=== PATIENT | male | born 1950 | race African-American/Black ===

== ENCOUNTER 2022-06-06 09:34 | Inpatient (IN) | payer MEDICARE, OTHER ==
[~2022-06-06] VITALS: Ht 188 cm; Wt 99.8 kg
[2022-06-06] VITALS (55 sets, daily range): BP systolic 55–107; BP diastolic 28–69
[2022-06-06] MEDS ORDERED: ETOMIDATE 2MG/ML 10ML VIAL IV ONE ×2 (09:45→10:02)
[2022-06-06] MEDS ORDERED: SUCCINYLCHOLINE CHLORIDE 200MG/10ML IV ONE ×2 (09:45→10:02)
[2022-06-06] MEDS ORDERED: PROPOFOL 10MG/ML 100ML 100 ML IV ONE (09:45)
[2022-06-06 09:54] LABS: BASOPHILS % 0.3 % (0.0-2.0); EOSINOPHILS % 2.5 % (0.0-5.0); HEMATOCRIT. 26.8 % (42.0-52.0); HEMOGLOBIN. 8.6 g/dL (14.0-18.0); LYMPHOCYTES % 45.2 % (20.0-50.0); MEAN CORPUSCULAR HEMOGLOBIN 35.5 pg (28.0-32.0); MEAN CORPUSCULAR VOLUME 110.4 fL (80.0-94.0); MEAN PLATELET VOLUME 8.6 fl (7.4-10.4); MONOCYTES % 5.9 % (2.0-8.0); NEUTROPHILS % 46.1 % (40.0-76.0); PLATELET 90 x1000/uL (130-400); RED BLOOD CELL COUNT 2.43 mill/uL (4.7-6.1); RED CELL DISTRIBUTION WIDTH 16.1 % (11.6-14.6)
[2022-06-06] MEDS ORDERED: NOREPINEPHRINE 8MG/250ML PMX 250 ML IV STA (10:09)
[2022-06-06 10:53] LABS: BG BASE EXCESS -15.2 mmol/L (-2.0-2.0); BG CARBOXYHEMOGLOBIN 0.2 % (0.5-1.5); BG DEOXYHEMOGLOBIN 0.6 % (0.0-5.0); BG HCO3 ACT 13.4 mmol/L (22.0-26.0); BG METHEMOGLOBIN 0.3 % (0.0-1.5); BG OXYGEN SATURATION 99.4 % (92.0-98.5); BG OXYHEMOGLOBIN 98.9 % (94.0-97.0); BG PCO2 42.8 mmHg (35.0-45.0); BG PH 7.114 (7.350-7.450); BG PO2 389.9 mmHg (75.0-100.0); BG SAMPLE SITE RIGHT RADIAL; BG TOTAL HEMOGLOBIN 10.3 g/dL (12.0-18.0); BG VENT MODE VENT - AC
[2022-06-06 11:38] LABS: PLATELET ESTIMATE SLIGHTLY DECREASED
[2022-06-06] MEDS ORDERED: MIDAZOLAM HCL 100 MG in DEXT 5% WATER 80 ML IV ONE (11:45)
[2022-06-06] MEDS ORDERED: FENTANYL CITRATE/PF 50MCG/ML 2ML VIAL IV ONE (11:45)
[2022-06-06 12:00] LABS: CHLORIDE 102 mEq/L (98-107)
[2022-06-06] MEDS ORDERED: ETOMIDATE 2MG/ML 10ML VIAL IV NR (12:00)
[2022-06-06] MEDS ORDERED: SUCCINYLCHOLINE CHLORIDE 200MG/10ML IV NR (12:00)
[2022-06-06] MEDS ORDERED: MIDAZOLAM 100MG/100ML PREMIX IV PRN (12:00)
[2022-06-06] MEDS ORDERED: NOREPINEPHRINE 8MG/250ML PMX 250 ML IV ONE ×2 (12:04→13:54)
[2022-06-06] MEDS ORDERED: PHENYLEPHRINE 100 MG in DEXT 5% WATER 240 ML IV PRN (13:15)
[2022-06-06] MEDS ORDERED: SODIUM BICARBONATE 8.4% 1 MEQ/ML 50ML SYR IV NR ×3 (13:30→15:30)
[2022-06-06] MEDS: PHENYLEPHRINE 100 MG in DEXT 5% WATER 240 ML IV PRN ×2 (14:41→19:33)
[2022-06-06 14:52] LABS: BG BASE EXCESS -23.4 mmol/L (-2.0-2.0); BG CARBOXYHEMOGLOBIN 0.3 % (0.5-1.5); BG DEOXYHEMOGLOBIN 1.9 % (0.0-5.0); BG FRACTION INSPIRED OXYGEN 60; BG HCO3 ACT 7.2 mmol/L (22.0-26.0); BG METHEMOGLOBIN 0.4 % (0.0-1.5); BG OXYGEN SATURATION 98.1 % (92.0-98.5); BG OXYHEMOGLOBIN 97.4 % (94.0-97.0); BG PCO2 31.3 mmHg (35.0-45.0); BG PH 6.979 (7.350-7.450); BG PO2 168.1 mmHg (75.0-100.0); BG SAMPLE SITE RIGHT RADIAL; BG VENT MODE VENT - AC
[2022-06-06 14:53] LABS: INR 1.4; PROTHROMBIN TIME 15.1 sec (9.6-11.0)
[2022-06-06] MEDS ORDERED: PIPERACILLIN/TAZ 3.375G PREMIX 50 ML IV SCH (15:00)
[2022-06-06] MEDS ORDERED: IPRATROPIUM/ALBUTEROL 0.5-3(2.5)MG/3ML NEB HHN PRN (15:00)
[2022-06-06] MEDS ORDERED: ACETAMINOPHEN 325MG TABLET PO PRN (15:00)
[2022-06-06] MEDS ORDERED: DEXTROSE 50% WATER 50ML SYRINGE IV PRN (15:00)
[2022-06-06 15:09] LABS: PARTIAL THROMBOPLASTIN TIME 81.6 sec (23.4-31.0)
[2022-06-06] MEDS ORDERED: HYDROCORTISONE SOD SUCCINATE 100 MG/2 ML VIAL IV NR (15:15)
[2022-06-06] MEDS: NOREPINEPHRINE 32 MG in DEXT 5% WATER 218 ML IV PRN ×2 (15:28→21:18)
[2022-06-06] MEDS: PANTOPRAZOLE SODIUM 40 MG/VIAL IV SCH (15:38)
[2022-06-06] MEDS: SODIUM BICARBONATE 150 MEQ in SODIUM CHLORIDE 0.45% 1,000 ML IV SCH (16:52)
[2022-06-06 16:53] LABS: MEAN CORPUSCULAR HEMOGLOBIN 33.5 pg (28.0-32.0); MEAN CORPUSCULAR VOLUME 108.4 fL (80.0-94.0); MEAN PLATELET VOLUME 8.4 fl (7.4-10.4); PLATELET 64 x1000/uL (130-400); RED CELL DISTRIBUTION WIDTH 18.8 % (11.6-14.6)
[2022-06-06] MEDS ORDERED: VANCOMYCIN 2,000 MG in DEXT 5% WATER 500 ML IV NR (17:00)
[2022-06-06 17:06] LABS: HEMATOCRIT. 20.6 % (42.0-52.0); HEMOGLOBIN. 6.4 g/dL (14.0-18.0)
[2022-06-06] MEDS: BLOOD SUGAR DIAGNOSTIC STRIP TEST SCH ×2 (17:50→21:43)
[2022-06-06] MEDS: DOPAMINE 800MG PREMIX (DOUBLE) 250 ML IV PRN (18:10)
[2022-06-06] MEDS: INSULIN LISPRO 100 UNITS/ML SUBCUT SCH ×2 (18:20→21:48)
[2022-06-06] MEDS ORDERED: PHYTONADIONE 10 MG in DEXTROSE 5% WATER 49 ML IV NR (18:30)
[2022-06-06] MEDS ORDERED: MIDAZOLAM 100MG/100ML PMX 100 ML IV PRN (19:00)
[2022-06-06 20:19] LABS: PLATELET ESTIMATE DECREASED
[2022-06-06] MEDS: PIPERACILLIN/TAZOBACTAM 3.375 G in DEXTROSE 5% WATER 50 ML IV SCH (20:27)
[2022-06-06 23:40] LABS: HEMATOCRIT 39.6 % (42.0-52.0)
[2022-06-07] VITALS (36 sets, daily range): BP systolic 77–116; BP diastolic 27–76
[2022-06-07 00:19] LABS: BG BASE EXCESS -25.8 mmol/L (-2.0-2.0); BG CARBOXYHEMOGLOBIN 0.1 % (0.5-1.5); BG FRACTION INSPIRED OXYGEN 60; BG HCO3 ACT 6.2 mmol/L (22.0-26.0); BG METHEMOGLOBIN 0.6 % (0.0-1.5); BG OXYHEMOGLOBIN 93.3 % (94.0-97.0); BG PCO2 31.8 mmHg (35.0-45.0); BG PH 6.906 (7.350-7.450); BG PO2 100.6 mmHg (75.0-100.0); BG SAMPLE SITE RIGHT BRACHIAL; BG TOTAL HEMOGLOBIN 12.9 g/dL (12.0-18.0); BG VENT MODE VENT - AC
[2022-06-07] MEDS: VASOPRESSIN 20 UNIT in SODIUM CHLORIDE 0.9% 99 ML IV PRN ×2 (00:34→06:21)
[2022-06-07] MEDS: DOPAMINE 800MG PREMIX (DOUBLE) 250 ML IV PRN (00:54)
[2022-06-07] MEDS ORDERED: SODIUM BICARBONATE 8.4% 1 MEQ/ML 50ML SYR IV NR (01:00)
[2022-06-07] MEDS: PHENYLEPHRINE 100 MG in DEXT 5% WATER 240 ML IV PRN ×3 (01:03→06:56)
[2022-06-07] MEDS: NOREPINEPHRINE 32 MG in DEXT 5% WATER 218 ML IV PRN ×3 (02:02→08:04)
[2022-06-07 03:21] LABS: D-DIMER > 32.50 mg/L FEU (<0.50)
[2022-06-07 03:25] LABS: FIBRINOGEN > 850 mg/dL (200-400)
[2022-06-07] MEDS: EPINEPHRINE 10 MG in SODIUM CHLORIDE 0.9% 240 ML IV PRN ×3 (04:35→07:17)
[2022-06-07] MEDS: SODIUM BICARBONATE 150 MEQ in SODIUM CHLORIDE 0.45% 1,000 ML IV SCH (04:35)
[2022-06-07 06:31] LABS: BG BASE EXCESS -27.7 mmol/L (-2.0-2.0); BG CARBOXYHEMOGLOBIN 0.3 % (0.5-1.5); BG DEOXYHEMOGLOBIN 8.8 % (0.0-5.0); BG FRACTION INSPIRED OXYGEN 60; BG HCO3 ACT 4.6 mmol/L (22.0-26.0); BG METHEMOGLOBIN 2.1 % (0.0-1.5); BG OXYHEMOGLOBIN 88.8 % (94.0-97.0); BG PCO2 28.2 mmHg (35.0-45.0); BG PH 6.833 (7.350-7.450); BG SAMPLE SITE RIGHT RADIAL; BG TOTAL HEMOGLOBIN 8.7 g/dL (12.0-18.0); BG VENT MODE VENT - AC
[2022-06-07 06:50] LABS: HEMATOCRIT. 29.5 % (42.0-52.0); HEMOGLOBIN. 8.4 g/dL (14.0-18.0); MEAN CORPUSCULAR HEMOGLOBIN 32.2 pg (28.0-32.0); MEAN CORPUSCULAR VOLUME 112.9 fL (80.0-94.0); RED BLOOD CELL COUNT 2.61 mill/uL (4.7-6.1); RED CELL DISTRIBUTION WIDTH 21.5 % (11.6-14.6)
[2022-06-07] MEDS ORDERED: SODIUM BICARBONATE 8.4% 1 MEQ/ML 50ML SYR IV SCH (07:15)
[2022-06-07] MEDS: BLOOD SUGAR DIAGNOSTIC STRIP TEST SCH (07:59)
[2022-06-07] MEDS: INSULIN LISPRO 100 UNITS/ML SUBCUT SCH (07:59)
[2022-06-07] MEDS: PIPERACILLIN/TAZOBACTAM 3.375 G in DEXTROSE 5% WATER 50 ML IV SCH (08:25)
[2022-06-07] MEDS: PANTOPRAZOLE SODIUM 40 MG/VIAL IV SCH (08:25)
[2022-06-07] MEDS ORDERED: CALCIUM GLUCONATE 1GM PREMIX 50 ML IV NR (08:30)
[2022-06-07 10:45] LABS: PLATELET 89 x1000/uL (130-400)
[2022-06-07 10:51] LABS: NUCLEATED RED BLOOD CELLS 7 /100 WBC; PLATELET ESTIMATE DECREASED
== END 2022-06-07 08:52 | DRG 314 ==
LOC: ER 10:02 → EDBEDREQ 12:20 → EDBEDREQTM 12:20 → EDBEDREQSVC 12:21 → ENRESERV 12:22 → CVICU 13:27 → EDBEDREQ 13:43
PROVIDERS: ADMIT Internal Medicine; ATTEND Internal Medicine
PROC: 5A1935Z Respiratory Ventilation, Less than 24 Consecutive Hours (ICD-10-PCS; principal; 2022-06-06)
PROC: 30233K1 Transfusion of Nonautologous Frozen Plasma into Peripheral Vein, Percutaneous Approach (ICD-10-PCS; 2022-06-06)
PROC: 30233N1 Transfusion of Nonautologous Red Blood Cells into Peripheral Vein, Percutaneous Approach (ICD-10-PCS; 2022-06-06)
PROC: 30233R1 Transfusion of Nonautologous Platelets into Peripheral Vein, Percutaneous Approach (ICD-10-PCS; 2022-06-06)
PROC: B54BZZA Ultrasonography of Right Lower Extremity Veins, Guidance (ICD-10-PCS; 2022-06-06)
PROC: 06HY33Z Insertion of Infusion Device into Lower Vein, Percutaneous Approach (ICD-10-PCS; 2022-06-06)
PROC: 0BH17EZ Insertion of Endotracheal Airway into Trachea, Via Natural or Artificial Opening (ICD-10-PCS; 2022-06-06)
PROC: 0HQEXZZ Repair Left Lower Arm Skin, External Approach (ICD-10-PCS; 2022-06-06)
PROC: 5A12012 Performance of Cardiac Output, Single, Manual (ICD-10-PCS; 2022-06-07)
DX: T82.838A Hemorrhage due to vascular prosthetic devices, implants and grafts, initial encounter (principal); J96.00 Acute respiratory failure, unspecified whether with hypoxia or hypercapnia; N18.6 End stage renal disease; I12.0 Hypertensive chronic kidney disease with stage 5 chronic kidney disease or end stage renal disease; E87.2 Acidosis; G93.40 Encephalopathy, unspecified; D62 Acute posthemorrhagic anemia; R57.8 Other shock; D63.1 Anemia in chronic kidney disease; E11.22 Type 2 diabetes mellitus with diabetic chronic kidney disease; B19.20 Unspecified viral hepatitis C without hepatic coma; D69.6 Thrombocytopenia, unspecified; D72.829 Elevated white blood cell count, unspecified; E87.5 Hyperkalemia; Z99.2 Dependence on renal dialysis; Y83.2 Surgical operation with anastomosis, bypass or graft as the cause of abnormal reaction of the patient, or of later complication, without mention of misadventure at the time of the procedure; Y92.89 Other specified places as the place of occurrence of the external cause
CPT/HCPCS: 36415; 36430; 36600; 71045; 80048; 80053; 82375; 82805; 82962; 83036; 83605; 83880; 84484; 85014; 85018; 85025; 85379; 85384; 86850; 86900; 86920; 86927; 92950; 93005; 94002; 94003; 99291; C9113; J0330; J0610; J1265; J1720; J1815; J2250; J2370; J2543; J2704; J3010; J3370; J3430; J3490; J7050; J7060; P9016; P9017; P9035